=== PATIENT | male | born 1960 | race Hispanic/Latino ===

== ENCOUNTER 2019-04-12 12:16 | Emergency (ER) | payer OTHER ==
[~2019-04-12] VITALS: Ht 167.6 cm; Wt 74.8 kg
--- NOTE | 2019-04-12 12:21 | NUR ---
ARRIVAL PT ARRIVED AMBULATORY TO ER 5 C/O LEFT KNEE PAIN. PT STATES HAD INJURY ON THE JOB 8 DAYS AGO WHEN HE FELL FROM LADDER, LANDING ON LEFT KNEE. PT STATES SAW IN [place] AND WAS GIVEN KNEE BRACE, PAIN MEDICATIONS AND ANTIINFLAMMATORIES. PT STATES CONTINUES TO HAVE PAIN IN LEFT KNEE. TRIAGE CONDUCTED USING LANGUAGE LINE.
[2019-04-12 12:34] VITALS: BP 167/102
--- NOTE | 2019-04-12 13:06 | ER.PDOC ---
General Chief Complaint: Extremities Stated Complaint: KNEE INJURY Time seen by MD: 12:59 Source: patient Exam Limitations: no limitations History of Present Illness Initial Comments Left knee pain S/P fall from a ladder 11 days ago. Patient was seen at an urgent care in [place] 8 days ago and had an X rays which showed fracture. He was discharged home on Naproxen, Tylenol #3, Bactrim DS and Clindamycin. He was also put in a knee brace. He comes today for continues pain as a follow up. Where: work Context: fall, twist Severity: moderate Allergies: Coded Allergies: No Known Allergies (Unverified , 04/12/19) Home Meds No Active Prescriptions or Reported Meds Past Medical History Medical History: no pertinent history Surgical History: appendectomy Social History Smoking: less than 1 pack/day Alcohol Use: occassionally Drug Use: none Review of Systems Constitutional: no symptoms reported EENTM: no symptoms reported Respiratory: no symptoms reported Cardiovascular: no symptoms reported Gastrointestinal: no symptoms reported Musculoskeletal: see HPI All Other Systems: Reviewed and Negative Physical Exam General Appearance: Alert, No Apparent Distress Foot: nml inspection, non-tender, nml color/temp, skin intact Ankle: nml inspection, non-tender, nml ROM, no joint swelling, skin intact Knee: tenderness (left knee), swelling Gait: limited by pain Neuro/Vasc/Tendon: sensation nml, motor nml, no vascular compromise, tendon function nml Skin: warm/dry Head/ENT: nml inspection, pharynx nml Neck/Back: nml inspection, non-tender Abdomen: non-tender, pelvis stable Results/Orders Results/Orders Vital Signs Date Time Temp Pulse Resp B/P (MAP) Pulse Ox O2 Delivery O2 Flow Rate FiO2 04/12/19 12:34 98.3 83 17 167/102 (123) 99 Room Air 04/12/19 12:21 98.3 83 17 99 Room Air 04/12/19 12:21 98.3 83 17 Progress Progress Patient refused repeat X rays, will follow up with Dr. Castro next week since they are already closed today. Departure Time of Disposition: 13:04 Disposition: 01 HOME, SELF-CARE Impression: Primary Impression: Left knee injury Condition: Stable Referrals: PCP,UNKNOWN (PCP) PRIMARY CARE PROVIDER Additional Instructions: Diclofenac Continue Tylenol #3 F/U with Dr. Castro next week. Call for appointment time. Scripts No Active Prescriptions or Reported Meds Duration or Time Spent with Pa: 20 mins Problem Qualifiers Primary Impression: Left knee injury Encounter type: initial encounter Qualified Codes: S89.92XA - Unspecified injury of left lower leg, initial encounter CHIVO ZARATE MD Apr 12, 2019 13:05
--- NOTE | 2019-04-12 13:30 | NUR ---
DISMISSAL PT DISCHARGED IN STABLE CONDITION FROM THE ED.
== END 2019-04-12 13:30 | disposition home or self-care (01) ==
LOC: ER 12:16
DX: S89.92XA Unspecified injury of left lower leg, initial encounter (principal); F17.200 Nicotine dependence, unspecified, uncomplicated; Z90.49 Acquired absence of other specified parts of digestive tract; W11.XXXA Fall on and from ladder, initial encounter; Y93.89 Activity, other specified; Y92.69 Other specified industrial and construction area as the place of occurrence of the external cause; Y99.0 Civilian activity done for income or pay
CPT/HCPCS: 99283